=== PATIENT | male | born 1960 | race Caucasian/White ===

== ENCOUNTER 2019-04-02 19:05 | Emergency (ER) | payer BC ==
[~2019-04-02] VITALS: Ht 177.8 cm; Wt 104.5 kg
[2019-04-02] MEDS ORDERED: LIDOCAINE 1% MDV 20ML VIAL SC ONE (19:30)
[2019-04-02] MEDS ORDERED: IBUPROFEN 800 MG TAB PO ONE (19:30)
--- NOTE | 2019-04-02 20:10 | REP ---
Clinical: Trauma. Crush injury. Technique: AP, lateral, bilateral oblique views of the left fifth digit. Findings: Comminuted fracture of the distal phalanx terminal tuft with overlying soft tissue injury. Impression: Comminuted fracture of the distal phalanx terminal tuft. Electronically Signed by Tejinder Moulton MD 04/02/2019 08:01 P
[2019-04-02] MEDS ORDERED: NORCO 5/325MG TABLET (BULK FOR ED) PO ONE (20:45)
[2019-04-02] MEDS ORDERED: BACTRIM 160MG/800MG DS TAB PO ONE (20:45)
[2019-04-02] MEDS ORDERED: NEOSPORIN TOP OINT 15GM TOP ONE (20:45)
[2019-04-02] MEDS ORDERED: HYDR-2808 PO (20:51)
[2019-04-02] MEDS ORDERED: IBUP80TA PO (20:51)
[2019-04-02] MEDS ORDERED: SULF1TAB93 PO (20:51)
[2019-04-02 21:47] VITALS: BP 128/79
[2019-04-03] MEDS ORDERED: NORC1TAB7 PO (11:55)
== END 2019-04-02 22:00 | disposition home or self-care (01) ==
LOC: M ED 19:05
DX: S62.667B Nondisplaced fracture of distal phalanx of left little finger, initial encounter for open fracture (principal); S61.307A Unspecified open wound of left little finger with damage to nail, initial encounter; W23.0XXA Caught, crushed, jammed, or pinched between moving objects, initial encounter; Y92.096 Garden or yard of other non-institutional residence as the place of occurrence of the external cause; Y93.I9 Activity, other involving external motion; Y99.8 Other external cause status

== ENCOUNTER → 2019-06-13 | Outpatient (REF) | payer BC ==
[~2019-06-13] MED LIST: HYDR-2808 PO; IBUP80TA PO; NORC1TAB7 PO; SULF1TAB93 PO
[2019-06-13 13:41] LABS: ALBUMIN 4.5 GM/DL (3.2-5.2); ALT/SGPT 31 U/L (12-78); BILIRUBIN,TOTAL 0.6 MG/DL (0.2-1.0); BLOOD UREA NITROGEN 16 MG/DL (7-18); CALCIUM LEVEL 9.4 MG/DL (8.5-10.1); CARBON DIOXIDE LEVEL 30 MEQ/L (21-32); CHLORIDE LEVEL 104 MEQ/L (98-107); CHOLESTEROL LEVEL 226 MG/DL (<200); CREATININE FOR GFR 1.06 MG/DL (0.70-1.30); FREE T4 0.86 NG/DL (0.76-1.46); GLOMERULAR FILTRATION RATE > 60.0 (>56); GLUCOSE, FASTING 92 MG/DL (70-100); HDL CHOLESTEROL 31 MG/DL (>40); LDL CHOLESTEROL 123 MG/DL (<100); NON-HDL-C 195 MG/DL; POTASSIUM SERUM 4.8 MEQ/L (3.5-5.1); SODIUM LEVEL 139 MEQ/L (136-145); TOTAL PROTEIN 7.8 GM/DL (6.4-8.2); TRIGLYCERIDES LEVEL 362 MG/DL (<150)
[2019-06-13 13:52] LABS: HEMOGLOBIN A1c 5.3 %
== END ==
LOC: M SFHCPLAZ 10:54
PROVIDERS: ATTEND Family Medicine
DX: Z12.5 Encounter for screening for malignant neoplasm of prostate (principal); R73.01 Impaired fasting glucose; E78.2 Mixed hyperlipidemia; K76.0 Fatty (change of) liver, not elsewhere classified
CPT/HCPCS: 36415; 80053; 80061; 82172; 83010; 83036; 83525; 83883; 84439; 84443; G0103

== ENCOUNTER 2019-06-17 10:20 | Emergency (ER) | payer OTHER, BC ==
[~2019-06-17] VITALS: Ht 177.8 cm; Wt 103.9 kg
[2019-06-17] MEDS ORDERED: ACET-683 PO (10:33)
[2019-06-17] MEDS ORDERED: MULTCAP PO (10:35)
[2019-06-17] MEDS ORDERED: CO Q300C PO (10:35)
[2019-06-17] MEDS ORDERED: ASPI81TA85 PO (10:35)
--- NOTE | 2019-06-17 11:14 | REP ---
Clinical: Trauma. Technique: Internal rotation, external rotation, and Y view of the right shoulder. Findings: Cortical irregularity and superior spurring at the acromioclavicular joint along with subtle cortical irregularity at the humeral neck suggests mild degenerative change. Subacromial space is normal. No periarticular calcifications or loose bodies are identified. No acute fracture or dislocation. Impression: Mild degenerative changes. Electronically Signed by Tejinder Moulton MD 06/17/2019 11:06 A
[2019-06-17] MEDS ORDERED: ULTR50TA8 PO (11:43)
[2019-06-17] MEDS ORDERED: NAPR-837 PO (11:43)
[2019-06-17 11:44] VITALS: BP 130/83
== END 2019-06-17 11:49 | disposition home or self-care (01) ==
LOC: M ED 10:20
DX: S46.001A Unspecified injury of muscle(s) and tendon(s) of the rotator cuff of right shoulder, initial encounter (principal); M19.011 Primary osteoarthritis, right shoulder; W20.8XXA Other cause of strike by thrown, projected or falling object, initial encounter; Y92.89 Other specified places as the place of occurrence of the external cause; Y99.0 Civilian activity done for income or pay; Z79.899 Other long term (current) drug therapy; Z79.82 Long term (current) use of aspirin